=== PATIENT | female | born 1955 | race Caucasian/White ===

== ENCOUNTER 2024-10-26 07:40 | Outpatient (RCR) | payer MEDICARE, BC, SELFPAY ==
--- NOTE | 2024-10-26 08:57 | HP.PTEVAL_ITS ---
Patient's Visit Information Visit Information Visit Information: AMY MICHEL is a 69 year old F referred to Physical Therapy by [facility] with a diagnosis of B knee OA. Date of Evaluation: 10/26/24 Physical Therapist: Anupam Mariscal, PT, ATC Visit Plan Frequency: 1x/Week Duration: 1 Week Plan: Pt was issued a HEP: Bridge, clamshells, knee flex all 10x2 with green band heel and toes raises, seated hip add with ball, sit to stands 10x2 ea stairs with one rail x 1 lap Pt is now I with HEP. Discharge. Subjective Subjective: Pt reports her knees have been sore chronically. Pt notes her pain had an insidious onset in nature. Pt reports her L knee became very sore approximately 2 weeks ago, and so she went to her doctors to get it checked out. Pt had x-rays and a cortisone injection in B knees at that time. Pt reports the injections have made a big difference as she can tell increased ease with negotiating her basement stairs. No PMHx of knee complications or surgeries. Pt reports occasional sleep difficulty secondary to pain as when she sleeps with her knees straight, she experiences significant pain. Pt reports she was only li mited from activity prior to her injections and the use of Advil, but now she is able to perform her ADL's and IAD:'s. Pt reports she is mostly here just to get some exercises to strengthen her knees for when she may have to have surgery in the future. 0/10 pain while sitting here in the clinic at rest, 4/10 at worst. Pain B knees: Pain Intensity (Out of 10): 0 Pain Intensity Range: 4 Objective Objective: Neuro: B LE sensation is WNL to light touch Palpation: Significant crepitus with AROM. Pt is very tender along the medial joint line in L knee. No obvious deformity noted today. ROM: R knee 0-10-110 degrees; L knee 0-15-103 degrees MMT: R knee flex= 38, ext= 41 #F; L knee flex= 34, ext= 49 #F TU sec Goals Goal 1:: Pt will be I with HEP after 1 visit Goal Time Frame: 1 Week Rehabilitation Potential Physical Therapy Diagnosis: Pt has B knee pain secondary to B knee OA Rehabilitation Potential: Good Anticipated Interventions Patient/Client Instruction: Educate patient on: Condition and Plan of Care For the Purpose of:: To improve self management Therapeutic Exercise to Include: Strength training, Endurance training, Active ROM and Dynamic Lumbar Stabilization For the Purpose of:: To decrease pain, To increase ROM and To improve muscle performance and motor function Text: Thank you for the opportunity to evaluate your patient. For Medicare and Medicare HMO plans, please review the plan of care and approve it. It will need to be FAXED BACK to us at [phone] for Medicare purposes. For Medicare only, by signing this I certify the plan of care. Please let me know if there are questions or concerns regarding this plan of care. Physician Signature: Date:
--- NOTE | 2024-10-26 08:58 | HP.PT.NRP ---
Patient Information Patient Information: AMY MICHEL was seen in my office for initial evaluation on 10/26/24. The following Plan of Care was established for this patient: POC Established Initial Frequency: 1x/Week Initial Duration: 1 Week Anticipated Interventions Patient/Client Instruction: Educate patient on: Condition and Plan of Care For the Purpose of:: To improve self management Therapeutic Exercise to Include: Strength training, Endurance training, Active ROM and Dynamic Lumbar Stabilization For the Purpose of:: To decrease pain, To increase ROM and To improve muscle performance and motor function Last Seen Last Seen: This patient was last seen in our office . Pertinent comments regarding their Physical therapy will appear below: Pt is now I with HEP. Discharge At this point I will be discontinuing this patient from physical therapy. I would be happy to see this patient again in the future if found appropriate by the physician. Thank you! Anupam Mariscal, PT, ATC
== END 2024-10-26 19:00 | disposition home or self-care (01) ==
LOC: PT 07:40
PROVIDERS: PCP Family Medicine; Referring Provider Physician Assistant; Visit Provider Physician Assistant
DX: M17.0 Bilateral primary osteoarthritis of knee (principal); M21.161 Varus deformity, not elsewhere classified, right knee; M21.162 Varus deformity, not elsewhere classified, left knee
CPT/HCPCS: 97110; 97161